=== PATIENT | female | born 1950 ===

== ENCOUNTER 2017-06-14 09:33 | Day surgery (SDC) | payer MEDICARE ==
[2017-06-14 09:51] VITALS: BMI 33.6
[2017-06-14] MEDS ORDERED: Lactated Ringer's 500 ML IV ONE (09:53)
[2017-06-14] MEDS ORDERED: Propofol 10 mg/ml Inj (20 ML) ONE (10:27)
[2017-06-14] MEDS ORDERED: Midazolam 2 MG/2 ML VIAL ONE (10:27)
[2017-06-14 11:13] VITALS: O2SAT 99
[2017-06-14 11:17] VITALS: BP 103/50; PULSE 53; RESP 16; TEMP 97.1
== END 2017-06-14 13:44 | disposition home or self-care (01) ==
LOC: H.ENDO 09:33
PROVIDERS: ATTEND Internal Medicine Gastroenterology
DX: Z12.11 Encounter for screening for malignant neoplasm of colon (principal); K57.30 Diverticulosis of large intestine without perforation or abscess without bleeding; K64.1 Second degree hemorrhoids
CPT/HCPCS: 82948; G0121; J2001; J2250; J2704; J7120